=== PATIENT | male | born 1980 | race Caucasian/White ===

== ENCOUNTER 2020-07-31 12:09 | Inpatient (IN) | payer OTHER ==
[~2020-07-31] VITALS: Ht 170.2 cm; Wt 64.2 kg
[2020-07-31 12:50] LABS: APPEARANCE,URINE CLOUDY (CLEAR); BILIRUBIN,URINE NEGATIVE (NEGATIVE); GLUCOSE, URINE (UA) NEGATIVE (NEGATIVE); KETONES,URINE >=80 mg/dL (NEGATIVE); NITRATE,URINE NEGATIVE (NEGATIVE); PH,URINE 5.5 (5.0-8.0); PROTEIN,URINE POS 1+ (NEGATIVE); UROBILINOGEN,URINE 0.2 mg/dL (<=1.0)
[2020-07-31 13:05] LABS: OCCULT BLOOD,URINE NEGATIVE (NEGATIVE)
[2020-07-31 13:07] LABS: BACTERIA,URINE Many /HPF (None Seen); LEUKOCYTE ESTERASE ,URINE MODERATE (NEGATIVE); RBC,URINE None Seen /HPF (0-2)
[2020-07-31 13:44] LABS: BASOPHILS % (AUTO) 0.4 % (0.0-2.0); EOSINOPHILS % (AUTO) 4.1 % (1.0-6.0); HEMATOCRIT 41.3 % (41-53); LYMPHOCYTES # (AUTO) 1.7 K/uL (1.0-4.8); MEAN CORPUSCULAR VOLUME 91 fL (80-100); MONOCYTES # (AUTO) 0.8 K/uL (0.1-1.0); MONOCYTES % (AUTO) 8.1 % (2.0-9.0); NEUTROPHILS # (AUTO) 7.4 K/uL (1.8-7.7); NEUTROPHILS % (AUTO) 71.4 % (40.0-70.0); PLATELET COUNT (AUTO) 294 K/uL (150-450); RED BLOOD CELL COUNT(AUTO) 4.53 MIL/uL (4.50-5.90); RED CELL DISTRIBUTION WIDTH 13.5 % (11.5-14.5)
[2020-07-31 13:57] LABS: ANION GAP 7 mmol/L (8-16); CALCIUM, TOTAL 9.5 mg/dL (8.8-10.5); CARBON DIOXIDE 27 mmol/L (22-29); CHLORIDE 105 mmol/L (98-107); CREATININE 0.95 mg/dL (0.60-1.30); GLOMERULAR FILTR. RATE CALC > 60 mL/min (>60); GLUCOSE,RANDOM 111 mg/dL (70-110); SODIUM SERUM 139 mmol/L (136-145); UREA NITROGEN, BLOOD 22 mg/dL (7-18)
[2020-07-31 14:04] LABS: ALANINE AMINOTRANSFERASE 79 U/L (12-78); ALKALINE PHOSPHATASE 78 U/L (46-116); ASPARTATE AMINOTRANSFERASE 165 U/L (15-37); BILIRUBIN,TOTAL 0.9 mg/dL (0.1-1.0); TOTAL PROTEIN, SERUM 7.9 g/dL (6.4-8.2)
[2020-07-31] MEDS ORDERED: CEPHALEXIN MONOHYDRATE 500 MG CAPSULE PO ONE (14:45)
[2020-07-31 15:26] LABS: COVID AG,FIA SOURCE NASAL SWAB
[2020-07-31] MEDS ORDERED: LOPERAMIDE HCL 2 MG CAPSULE PO PRN (16:00)
[2020-07-31] MEDS ORDERED: IBUPROFEN 400 MG TABLET PO PRN (16:00)
[2020-07-31] MEDS ORDERED: ONDANSETRON HCL 4 MG TABLET PO PRN (16:00)
[2020-07-31] MEDS ORDERED: GuaiFENesin/D-METHORPHAN [SUGAR-FREE] 200-20MG/10 ML SYRUP UDCUP PO PRN (16:00)
[2020-07-31] MEDS ORDERED: PETROLATUM,WHITE 28 GM JELLY TP PRN (16:00)
[2020-07-31] MEDS ORDERED: DOCUSATE SODIUM 100 MG CAPSULE PO PRN (16:00)
[2020-07-31] MEDS ORDERED: MAGNESIUM HYDROXIDE SUSPENSION 30 ML UDCUP PO PRN (16:00)
[2020-07-31] MEDS ORDERED: ALBUTEROL SULFATE HFA 90 MCG/PUFF 8 GM INHALER IH PRN (16:00)
[2020-07-31] MEDS ORDERED: NICOTINE 14 MG/24 HOUR PATCH TD PRN (16:00)
[2020-07-31] MEDS ORDERED: CloNIDine HCL 0.1 MG TABLET PO PRN (16:00)
[2020-07-31] MEDS ORDERED: ACETAMINOPHEN 325 MG TABLET PO PRN (16:00)
[2020-07-31] MEDS ORDERED: MAG HYDROX/AL HYDROX/SIMETH ES 30 ML SUSPENSION UDCUP PO PRN (16:00)
[2020-07-31] MEDS: CefTRIAXone 1 GM/DEXTROSE 50 ML IV SCH (17:20)
[2020-07-31] MEDS ORDERED: FLUORESCEIN SODIUM 1 MG STRIP ONE (19:04)
[2020-07-31 20:59] VITALS: BP 134/79
[2020-07-31] MEDS: ERYTHROMYCIN 0.5% 1 GM TUBE OPHTHALMIC OINTMENT OU SCH (22:27)
[2020-07-31 23:41] VITALS: BP 120/74
[2020-08-01] MEDS ORDERED: INFLUENZA VIRUS VACCINE QVS 2020-21 (6MO+)/PF 60 MCG/0.5 ML SYRINGE IM ONE (03:00)
[2020-08-01 04:57] VITALS: BP 113/75
[2020-08-01 08:10] VITALS: BP 113/58
[2020-08-01] MEDS: ERYTHROMYCIN 0.5% 1 GM TUBE OPHTHALMIC OINTMENT OU SCH ×2 (08:40→20:21)
[2020-08-01] MEDS ORDERED: SODIUM CHLORIDE 0.9% 500 ML IV ONE (15:55)
[2020-08-01] MEDS: CefTRIAXone 1 GM/DEXTROSE 50 ML IV SCH (16:02)
[2020-08-01 19:48] VITALS: BP 121/84
[2020-08-02 04:03] VITALS: BP 112/77
[2020-08-02 07:38] VITALS: BP 122/78
[2020-08-02] MEDS: ERYTHROMYCIN 0.5% 1 GM TUBE OPHTHALMIC OINTMENT OU SCH (08:40)
[2020-08-02 13:09] LABS: BASOPHILS % (AUTO) 0.6 % (0.0-2.0); HEMATOCRIT 41.5 % (41-53); LYMPHOCYTES # (AUTO) 2.3 K/uL (1.0-4.8); MEAN CORPUSCULAR HEMOGLOBIN 30.9 pg (26.0-34.0); MEAN CORPUSCULAR HGB CONC 33.7 G/dL (31.0-37.0); MEAN CORPUSCULAR VOLUME 92 fL (80-100); MONOCYTES # (AUTO) 0.6 K/uL (0.1-1.0); MONOCYTES % (AUTO) 6.5 % (2.0-9.0); NEUTROPHILS # (AUTO) 3.9 K/uL (1.8-7.7); NEUTROPHILS % (AUTO) 44.8 % (40.0-70.0); PLATELET COUNT (AUTO) 299 K/uL (150-450); RED BLOOD CELL COUNT(AUTO) 4.53 MIL/uL (4.50-5.90); RED CELL DISTRIBUTION WIDTH 13.1 % (11.5-14.5)
[2020-08-02 13:10] LABS: EOSINOPHILS % (AUTO) 21.1 % (1.0-6.0)
[2020-08-02 13:16] LABS: ANION GAP 8 mmol/L (8-16); CALCIUM, TOTAL 9.3 mg/dL (8.8-10.5); CARBON DIOXIDE 27 mmol/L (22-29); CHLORIDE 104 mmol/L (98-107); CREATININE 0.91 mg/dL (0.60-1.30); GLOMERULAR FILTR. RATE CALC > 60 mL/min (>60); GLUCOSE,RANDOM 94 mg/dL (70-110); POTASSIUM 4.5 mmol/L (3.5-5.1); SODIUM SERUM 139 mmol/L (136-145); UREA NITROGEN, BLOOD 16 mg/dL (7-18)
[2020-08-02 13:23] LABS: ALANINE AMINOTRANSFERASE 84 U/L (12-78); ALBUMIN 3.8 g/dL (3.4-5.0); ALKALINE PHOSPHATASE 73 U/L (46-116); ASPARTATE AMINOTRANSFERASE 131 U/L (15-37); BILIRUBIN,TOTAL 0.6 mg/dL (0.1-1.0); TOTAL PROTEIN, SERUM 7.6 g/dL (6.4-8.2)
[2020-08-02] MEDS ORDERED: ERYT3.5O8 OU (14:11)
== END 2020-08-02 15:00 | DRG 690 ==
LOC: EMS 12:13 → 6N 15:52 → 6S 20:40
PROVIDERS: ADMIT Internal Medicine; ATTEND Internal Medicine
DX: N39.0 Urinary tract infection, site not specified (principal); E86.0 Dehydration; R74.01 Elevation of levels of liver transaminase levels; Z20.822 Contact with and (suspected) exposure to COVID-19
CPT/HCPCS: 76770; 87086; 87426; 99285; J0696; J7040